=== PATIENT | male | born 1985 | race Hispanic/Latino ===

== ENCOUNTER 2017-03-23 19:40 | Emergency (ER) | payer BC ==
[2017-03-23 20:01] VITALS: BMI 26.4
[2017-03-23 20:05] VITALS: BP 151/89; PULSE 90; RESP 18; TEMP 97.9; O2SAT 98
[2017-03-23] MEDS ORDERED: Absorbable Gelatin Sponge Size 12-7 MM STA (20:19)
--- NOTE | 2017-03-23 20:21 | C.PDOC ---
History Of Present Illness 31 y/o male presents to ED with complaints of laceration to right index finger. Pt was using a table saw and accidentally cut the tip of right index finger. He immediately cleaned and covered the area, bleeding controlled. Pt complains of throbbing pain to the area. Tetanus UTD. Denies weakness, numbness or any other complaints. Time Seen by Provider: 03/23/17 20:13 Chief Complaint (Nursing): Abnormal Skin Integrity History Per: Patient History/Exam Limitations: no limitations Onset/Duration Of Symptoms: Hrs Current Symptoms Are (Timing): Still Present Severity: Mild Recent travel outside of the [place]: No Past Medical History Reviewed: Historical Data, Nursing Documentation, Vital Signs Vital Signs: Last Vital Signs Temp 97.9 F 03/23/17 20:01 Pulse 90 03/23/17 20:01 Resp 18 03/23/17 20:01 BP 151/89 H 03/23/17 20:01 Pulse Ox 98 03/23/17 21:11 Family History: States: Unknown Family Hx - Social History Hx Alcohol Use: No Hx Substance Use: No - Immunization History Hx Tetanus Toxoid Vaccination: Yes Hx Influenza Vaccination: Yes Hx Pneumococcal Vaccination: No Review Of Systems Skin: Positive for: Other (laceration to right index finger) Neurological: Negative for: Weakness, Numbness Physical Exam - Physical Exam Appears: Non-toxic, No Acute Distress Skin: Warm, Dry, Other (0.5 cm avulsion to finger tip, involves distal nail, no active bleeding. Normal tendon function. ) Head: Atraumatic, Normacephalic Extremity: Normal ROM, Capillary Refill (<2 seconds) Pulses: Right Radial: Normal Neurological/Psych: Oriented x3, Normal Speech, Normal Motor, Normal Sensation ED Course And Treatment O2 Sat by Pulse Oximetry: 98 (room air) Pulse Ox Interpretation: Normal Medical Decision Making Medical Decision Makin31 year old male with injury right hand second fingertip. Avulsion of skin with partial nail involvement. No active bleeding. Area thoroughly cleansed and irrigated with saline and betadyne. Gelfoam applied for protective barrier. XRay ordered to rule out any fracture. Xray was normal. Patient has full ROM to digit and no tendon injury. Advise close followup and patient instructed on wound care. Disposition Counseled Patient/Family Regarding: Diagnosis, Need For Followup - Disposition Referrals: Xander Vieyra MD [Staff Provider] - Disposition: HOME/ ROUTINE Disposition Time: 21:05 Condition: GOOD Additional Instructions: Keep area clean and dry. May wash gently with soap and water, do not use alcohol or iodine solution. Change dressing 1-2 times daily. Return to ER if fever occurs, redness or swelling around wound, pus in the wound. Please follow up with your primary doctor, or specialist for wound check in 4-5 days. Gelfoam was applied to wound, which will gradually fall off in few days. Instructions: Skin Avulsion (ED) Forms: [employer] (Albanian) - POA Present On Arrival: None - Clinical Impression Clinical Impression: Avulsion of fingertip - PA / SUBSTATION MECHANIC / Resident Statement MD/DO has reviewed & agrees with the documentation as recorded. - Scribe Statement The provider has reviewed the documentation as recorded by the Scribe Osman Vang All medical record entries made by the Scribe were at my direction and personally dictated by me. I have reviewed the chart and agree that the record accurately reflects my personal performance of the history, physical exam, medical decision making, and the department course for this patient. I have also personally directed, reviewed, and agree with the discharge instructions and disposition.
[2017-03-23] MEDS ORDERED: Absorbable Gelatin Sponge Size 12-7 ONE (20:24)
--- NOTE | 2017-03-24 10:25 | RAD ---
PROCEDURE: Right Index finger radiographs. HISTORY: injury with saw, laceration COMPARISON: None. TECHNIQUE: AP radiograph of the right hand, as well as spot oblique and lateral images of index finger were obtained. FINDINGS: RIGHT INDEX FINGER: Normal right index finger, without fracture or focal lesion. Remainder of the right hand (as seen on the AP view) grossly intact. JOINTS: Normal. SOFT TISSUES: There is laceration in the dorsal tip of the index finger. No radiopaque foreign body. OTHER FINDINGS: None. IMPRESSION: No acute fracture or dislocation. Laceration in the tuft of the index finger. No radiopaque foreign body.
== END 2017-03-23 21:06 | disposition home or self-care (01) ==
LOC: C.ER 19:40
DX: S61.310A Laceration without foreign body of right index finger with damage to nail, initial encounter (principal); W31.2XXA Contact with powered woodworking and forming machines, initial encounter

== ENCOUNTER 2018-08-05 05:53 | Day surgery (SDC) | payer BC ==
[2018-08-01 12:14] VITALS: BMI 31.9
[2018-08-05] MEDS ORDERED: ceFAZolin IV 1 gm in Dextrose 2 GM/100 ML BAG IVPB ONE (07:47)
[2018-08-05] MEDS ORDERED: Bupivacaine-Epi 0.5%-1:200,000 PF Inj ONE (07:47)
[2018-08-05] MEDS ORDERED: Propofol 10 mg/ml Inj (20 ML) ONE (07:51)
--- NOTE | 2018-08-05 08:52 | PCM.SURG1 ---
Surgeon's Initial Post Op Note - Surgeon's Notes Surgeon: Dr. Carnes Immersion Metalcleaner: Dr. To PGY3, Harpal MS3 Type of Anesthesia: General Endo Pre-Operative Diagnosis: Umbilical Hernia Operative Findings: See operative Dictation Post-Operative Diagnosis: Umbilical Hernia Operation Performed: Open Umbilical Hernia Repair with Mesh Specimen/Specimens Removed: None Estimated Blood Loss: EBL {In ML}: 5 Blood Products Given: N/A Drains Used: No Drains Post-Op Condition: Good Date of Surgery/Procedure: 08/05/18 Time of Surgery/Procedure: 08:51
[2018-08-05] MEDS ORDERED: Lactated Ringer's 500 ML IV ONE (10:10)
[2018-08-05 10:28] VITALS: RESP 18
[2018-08-05 11:12] VITALS: BP 128/77; PULSE 84; TEMP 97.7; O2SAT 97
--- NOTE | 2018-08-05 18:00 | OP ---
PROCEDURE DATE: 08/05/2018 PREOPERATIVE DIAGNOSIS: Ventral hernia. POSTOPERATIVE DIAGNOSIS: Ventral hernia. PROCEDURE CARRIED OUT: Repair of ventral hernia with mesh. SURGEON: Dago Carnes Jr., MD. FOIL STAMP OPERATOR: Jose Armando To DO. ANESTHESIOLOGIST: Minerva Glover CRNA. INDICATIONS: A 33-year-old man with abdominal pain, found to have a small ventral hernia adjacent to the umbilicus. OPERATIVE FINDINGS: This is a small defect approximately the size of a dime. A Ventralex type mesh was used which was coated with C-Qur. This was brought up against the abdominal wall and opened. DESCRIPTION OF PROCEDURE: The patient was given general anesthesia, intravenous antibiotics, standard skin prep, and then placement of a dry drape was carried out. After herniated defect had been identified, we then cleaned and freshened up the edges. We then placed the mesh into the peritoneal cavity after making sure that there was a layer of omentum between the bowel and the mesh. After this had been secured into position with sutures, the wound was closed with Monocryl and nylon sutures and a subcuticular closure on the skin. Blood loss of the procedure was 5 mL. Operation carried out was repair of ventral hernia with mesh. Dago Carnes Jr., MD
== END 2018-08-05 11:00 | disposition home or self-care (01) ==
LOC: C.SDS 05:53
PROVIDERS: ATTEND Surgery Vascular Surgery
DX: K43.9 Ventral hernia without obstruction or gangrene (principal)
CPT/HCPCS: 49560; 49568; J0690; J1885; J2405; J2704; J7120